=== PATIENT | male | born 1960 | race Caucasian/White ===

== ENCOUNTER 2019-03-01 08:39 | Day surgery (SDC) | payer BC ==
[~2019-03-01] VITALS: Ht 172.7 cm; Wt 92.5 kg
[~2019-03-01 08:39] MED LIST: ALBU90OI6 INH; Bupropion Xl150 MG PO; Daily Multiple1 EACH PO; PANT20 PO; Prednisone20 MG PO; Saw Palmetto500 MG PO; Super Calcium600 MG PO; ZYRTEC10 M1 PO; Zithromax250 MG PO
== END 2019-03-01 10:15 | disposition home or self-care (01) ==
LOC: ORSCSDS 08:39
PROVIDERS: Surgery
PROC: 0DBM8ZX Excision of Descending Colon, Via Natural or Artificial Opening Endoscopic, Diagnostic (ICD-10-PCS; principal; 2019-03-01 09:45)
DX: Z12.11 Encounter for screening for malignant neoplasm of colon (principal); K63.5 Polyp of colon; Z86.010 Personal history of colon polyps; F32.9 Major depressive disorder, single episode, unspecified; N40.0 Benign prostatic hyperplasia without lower urinary tract symptoms; Z79.899 Other long term (current) drug therapy; Z87.891 Personal history of nicotine dependence
CPT/HCPCS: 88305; J2704; J7120

== ENCOUNTER 2020-05-06 08:31 | Day surgery (SDC) | payer BC ==
[~2020-05-06] VITALS: Ht 172.7 cm; Wt 92.9 kg
--- NOTE | 2020-05-06 10:45 | NUR ---
05/06/20 [id number] CARITO TIRADO PT'S BP BECAME ELEVATED DURING UPPER ENDOSCOPY. MADE AWARE. PT BP MONITORED PER MINUTE AND BP SUBSIDED BACK TO BASELINE. SEE SEDATION RECORD FOR REAL TIME BP RECORDS.
== END 2020-05-06 10:45 | disposition home or self-care (01) ==
LOC: ORSCSDS 08:31
PROVIDERS: Student in an Organized Health Care Education/Training Program
PROC: 0DB58ZX Excision of Esophagus, Via Natural or Artificial Opening Endoscopic, Diagnostic (ICD-10-PCS; principal; 2020-05-06 10:00)
DX: R13.10 Dysphagia, unspecified (principal); K21.9 Gastro-esophageal reflux disease without esophagitis; K44.9 Diaphragmatic hernia without obstruction or gangrene
CPT/HCPCS: 88305; J2704; J7120